=== PATIENT | female | born 1940 | race Asian ===

== ENCOUNTER 2022-07-09 15:20 | Inpatient (IN) | payer OTHER, MEDICARE ==
[~2022-07-09] VITALS: Ht 154.9 cm; Wt 57.2 kg
[2022-07-09 15:23] VITALS: BP 124/76
--- NOTE | 2022-07-09 15:26 | NUR ---
PT BIBA TO BED 3
--- NOTE | 2022-07-09 15:28 | NUR ---
HX DM , HTN , ALZHEIMERS ,FROM HOME TRIPPED OVER A RUG UNWITTNESSED, GCS 14, NO DEFORMITY, RIGHT HIP BRUISE
[2022-07-09 16:16] LABS: BASOPHILS # (AUTO) 0.1 K/uL (0.00-0.22); BASOPHILS % (AUTO) 0.6 % (0.0-2.0); EOSINOPHILS # (AUTO) 0.1 K/uL (0-0.4); EOSINOPHILS % (AUTO) 0.6 % (0.0-4.0); HEMATOCRIT 30.4 % (36-48); HEMOGLOBIN 10.3 g/dL (12.0-16.0); LYMPHOCYTES # (AUTO) 0.8 K/uL (2.5-16.5); MEAN CORPUSCULAR HEMOGLOBIN 29 pg (27-31); MEAN CORPUSCULAR HGB CONC 34 g/dL (33-37); MEAN CORPUSCULAR VOLUME 84.7 fL (80-94); MONOCYTES # (AUTO) 0.7 K/uL (0.8-1.0); MONOCYTES % (AUTO) 7.2 % (1.7-9.3); NEUTROPHILS # (AUTO) 8.7 K/uL (1.8-7.7); NEUTROPHILS % (AUTO) 83.5 % (42.2-75.2); PLATELET COUNT (AUTO) 233 K/uL (140-450); RED BLOOD CELL COUNT(AUTO) 3.59 MIL/uL (4.20-5.40); RED CELL DISTRIBUTION WIDTH 13.1 % (11.6-13.7); WHITE BLOOD COUNT (AUTO) 10.4 K/uL (4.8-10.8)
[2022-07-09 16:19] LABS: LYMPHOCYTES % (AUTO) 8.1 % (20.5-51.1)
[2022-07-09 16:34] LABS: ALBUMIN 3.5 g/dL (3.4-5.0); ANION GAP 12.1 (8-16); ASPARTATE AMINOTRANSFERASE 18 U/L (15-37); CHLORIDE 100 mmol/L (98-107); GLUCOSE 260 mg/dL (74-106); POTASSIUM 4.1 mmol/L (3.5-5.1); SODIUM SERUM 136 mmol/L (136-145); TOTAL BILIRUBIN 1.5 mg/dL (0.0-1.0); UREA NITROGEN, BLOOD 26 mg/dL (7-18)
[2022-07-09 16:43] LABS: PROTHROMBIN TIME 9.2 secs (10.8-13.4)
[2022-07-09] MEDS ORDERED: MORPHINE SULFATE 4 MG/ML SYR IVP ONE (16:50)
[2022-07-09] MEDS ORDERED: ONDANSETRON 4 MG/2 ML VIAL IVP PRN (18:10)
[2022-07-09] MEDS ORDERED: MORPHINE SULFATE 2 MG/ML SYR IVP PRN (18:10)
[2022-07-09] MEDS ORDERED: ACETAMINOPHEN 325 MG TAB PO PRN (18:10)
[2022-07-09] MEDS ORDERED: DEXTROSE 50% 50 ML SYR IVP PRN (18:15)
[2022-07-09] MEDS: DEXT 5% /NACL 0.9% 1,000 ML IV SCH ×2 (18:25→23:31)
--- NOTE | 2022-07-09 20:01 | NUR ---
81yo F here for R hip fracture. Sleeping at this time. No complaints of pain. VS stable. Daughter at bedside. Pt has assigned bed, will admit soon.
[2022-07-09] MEDS: BLOOD GLUCOSE MONITORING 1 DEV DEV FS SCH (21:09)
[2022-07-09] MEDS: INSULIN LISPRO SLIDING SCALE 100 UNITS/ML VIAL SUBQ PRN (21:21)
--- NOTE | 2022-07-09 21:30 | NUR ---
Blooc sugar 398. 10 units Humalog SC given per sliding scale
--- NOTE | 2022-07-09 21:39 | NUR ---
Admitted to room 106B. Report given to CAMDEN Lou
[2022-07-10] VITALS: BP 154/76
[2022-07-10 04:00] VITALS: BP 156/71
[2022-07-10 06:56] LABS: BASOPHILS % (AUTO) 0.2 % (0.0-2.0); EOSINOPHILS # (AUTO) 0.1 K/uL (0-0.4); EOSINOPHILS % (AUTO) 1.3 % (0.0-4.0); HEMATOCRIT 29.5 % (36-48); HEMOGLOBIN 9.6 g/dL (12.0-16.0); LYMPHOCYTES # (AUTO) 0.9 K/uL (2.5-16.5); MEAN CORPUSCULAR HEMOGLOBIN 28 pg (27-31); MEAN CORPUSCULAR HGB CONC 33 g/dL (33-37); MEAN CORPUSCULAR VOLUME 84.8 fL (80-94); MONOCYTES # (AUTO) 0.7 K/uL (0.8-1.0); MONOCYTES % (AUTO) 10.8 % (1.7-9.3); NEUTROPHILS % (AUTO) 74.7 % (42.2-75.2); PLATELET COUNT (AUTO) 212 K/uL (140-450); RED BLOOD CELL COUNT(AUTO) 3.48 MIL/uL (4.20-5.40); RED CELL DISTRIBUTION WIDTH 13.5 % (11.6-13.7); WHITE BLOOD COUNT (AUTO) 6.7 K/uL (4.8-10.8)
[2022-07-10 07:21] LABS: ANION GAP 9.4 (8-16); CARBON DIOXIDE 27.7 mmol/L (21-32); CHLORIDE 107 mmol/L (98-107); CREATININE 0.8 mg/dL (0.6-1.3); GLUCOSE 189 mg/dL (74-106); POTASSIUM 4.1 mmol/L (3.5-5.1); SODIUM SERUM 140 mmol/L (136-145); UREA NITROGEN, BLOOD 17 mg/dL (7-18)
[2022-07-10] MEDS: BLOOD GLUCOSE MONITORING 1 DEV DEV FS SCH ×4 (07:30→21:00)
--- NOTE | 2022-07-10 07:30 | NUR ---
REPORT RECEIVED FROM NIGHTSHIFT NURSERADHA. PT CONFUSED. DAUGHTER AT BEDSIDE. RR EVEN & UNLABORED. ON RA. NPO AFTER MIDNIGHT. D5NS @ 75 ON RFA #20. NEEDS ALL MET AT THIS TIME. ALL SAFETY MEASURES IN PLACE.
[2022-07-10 08:00] VITALS: BP 127/95
--- NOTE | 2022-07-10 10:30 | NUR ---
SURGEON JYOTHI DISCUSSED PLANNED ORIF WITH PT'S DAUGHTER AT BEDSIDE WITH CAMDEN HIDALGO. SURGEON JYOTHI ORDER FOR NORRIS INSERTION AND ECHOCARDIOGRAM.
--- NOTE | 2022-07-10 10:38 | NUR ---
PATIENT HAS BEEN SCREENED AND CATEGORIZED MODERATE NUTRITION RISK. PATIENT WILL BE SEEN WITHIN 3-5 DAYS OF ADMISSION. 07/09/22-07/14/[address]
--- NOTE | 2022-07-10 11:00 | NUR ---
16 [place] NORRIS CATH INSERTED VIA STERILE TECHNIQUE WITH CLEAR YELLOW URINE TO DRAINAGE BAG. STAT LOCK APPLIED ON LLE. PT TOLERATED WELL. ALL NEEDS MET. ALL SAFETY MEASURES IN PLACE.
--- NOTE | 2022-07-10 12:23 | NUR ---
CONTACTED DR. DALTON FOR DIET ORDERS. DR. ROE PLANS FOR SURGERY (07/12/22). AWAITING REPLY.
--- NOTE | 2022-07-10 12:30 | NUR ---
ORDER FOR DR. ONEILL TO READ ECHOCARDIOGRAM RESULTS ONCE IT IS IN FOR SURGICAL CLEARANCE. DR. ONEILL NOTIFIED.
--- NOTE | 2022-07-10 12:32 | NUR ---
DR. DALTON ORDER FOR [facility] 60 GM MECHANICAL SOFT DIET.
--- NOTE | 2022-07-10 15:23 | NUR ---
ECHO PERFORMING AT BEDSIDE. PT TOLERATING WELL. IN NO ACUTE DISTRESS. ON RA.
[2022-07-10] MEDS: INSULIN LISPRO SLIDING SCALE 100 UNITS/ML VIAL SUBQ PRN (16:17)
--- NOTE | 2022-07-10 19:20 | NUR ---
REPORT GIVEN TO NIGHTSMAFT NURSEALYCE FOR CONTINUITY OF CARE.
[2022-07-10 20:00] VITALS: BP 144/85
[2022-07-10] MEDS: DEXT 5% /NACL 0.9% 1,000 ML IV SCH (20:50)
[2022-07-11] MEDS ORDERED: HALOPERIDOL IM 5 MG/ML VIAL IM SCH (00:25)
[2022-07-11] MEDS: BLOOD GLUCOSE MONITORING 1 DEV DEV FS SCH ×4 (07:30→21:50)
[2022-07-11] MEDS: DEXT 5% /NACL 0.9% 1,000 ML IV SCH ×2 (07:59→23:30)
[2022-07-11 08:00] VITALS: BP 158/87
[2022-07-11] MEDS: INSULIN LISPRO SLIDING SCALE 100 UNITS/ML VIAL SUBQ PRN ×3 (12:20→21:50)
[2022-07-11] MEDS ORDERED: bisacodyL 10 MG SUPP RC PRN (12:35)
--- NOTE | 2022-07-11 15:17 | NUR ---
PT. WITH LOW MITCHELL SCALE AT MODERATE TO HIGH RISK, CONTINUE TO FOLLOW PRESSURE INJURY PREVENTION INTERVENTIONS. -POSITIONING: TURN AND REPOSITION PATIENT Q 2H OR SOONER USE PILLOWS TO KEEP BONY PROMINENCES FROM DIRECT CONTACT WITH SURFACES USE REPOSITIONING WEDGES TO PROVIDE 30-DEGREE ANGLE FOR SIDE LYING POSITIONS OFFLOADING OR FOAM DRESSING TO ALL TUBING TO PREVENT MEDICAL DEVICES RELATED PRESSURE INJURY -RE-EVALUATING AND MANAGING INCONTINENCE MONITOR SKIN CONDITION DURING POSITION CHANGE DO NOT MASSAGE REDNESS, BONY PROMINENCES FREQUENT MARIANO-CARE AND PROVIDE BARRIER CREAMS PRN IF SOILING MOISTURE CONTROL BY OFFER BED AREVALO/URINAL /ABSORBENT PAD TO WICK AND HOLD MOISTURE KEEP SKIN DRY AND PROTECT FROM FRICTION -MANAGE FRICTION/SHEAR/MOBILITY KEEP HOB AT THE LOWEST LEVEL OF ELEVATION NO MORE THAN 30 DEGREE UNLESS OTHERWISE CONTRAINDICATED USE LIFT SHEET OR TRANSFER DEVICE TO MOVE PATIENT AND PREVENT LATERAL SHEER. PROTECT HEELS, ELBOWS BONY PROMINENCES WITH SKIN BERRIES OR FOAM DRESSING IF EXPOSED TO FRICTION OFFLOAD BILATERAL HEELS BY PLACING PILLOWS UNDER CALVES AT ALL TIMES, UNLESS OTHERWISE CONTRAINDICATED -PRESSURE REDISTRIBUTION SURFACE THERAPY ZURI ISOFLEX MATTRESS -NUTRITION: PLEASE FOLLOW RD RECOMMENDATIONS AND OFFER NUTRITION SUPPLEMENTS IF ORDERED. PLEASE CONTACT WOUND CARE NURSE FOR ANY QUESTION AND CHANGE OF WOUND CONDITION.
[2022-07-11 16:00] VITALS: BP 152/68
--- NOTE | 2022-07-11 17:59 | NUR ---
pt alert and oriented to self, family at bedside all day. pt pleasant and cooperative. no c/o pain at rest. daughter requested suppository for not having a bm in a week even though the chart states patient had a bm yesterday. suppository given @1730. insulin coverage given as needed for elevated glucose levels. fall precautions in place.
[2022-07-11 20:01] VITALS: BP 150/67
[2022-07-11] MEDS ORDERED: LORazepam 1 MG TAB PO PRN (22:25)
[2022-07-12] VITALS (9 sets, daily range): BP systolic 101–145; BP diastolic 43–66
[2022-07-12 05:46] LABS: BASOPHILS # (AUTO) 0.1 K/uL (0.00-0.22); BASOPHILS % (AUTO) 0.5 % (0.0-2.0); EOSINOPHILS % (AUTO) 0.4 % (0.0-4.0); HEMATOCRIT 28.6 % (36-48); HEMOGLOBIN 9.6 g/dL (12.0-16.0); LYMPHOCYTES # (AUTO) 1.1 K/uL (2.5-16.5); LYMPHOCYTES % (AUTO) 10.3 % (20.5-51.1); MEAN CORPUSCULAR HEMOGLOBIN 28 pg (27-31); MEAN CORPUSCULAR HGB CONC 34 g/dL (33-37); MEAN CORPUSCULAR VOLUME 82.6 fL (80-94); MONOCYTES # (AUTO) 0.8 K/uL (0.8-1.0); MONOCYTES % (AUTO) 7.3 % (1.7-9.3); NEUTROPHILS # (AUTO) 8.8 K/uL (1.8-7.7); NEUTROPHILS % (AUTO) 81.5 % (42.2-75.2); PLATELET COUNT (AUTO) 260 K/uL (140-450); RED BLOOD CELL COUNT(AUTO) 3.46 MIL/uL (4.20-5.40); RED CELL DISTRIBUTION WIDTH 13.4 % (11.6-13.7); WHITE BLOOD COUNT (AUTO) 10.8 K/uL (4.8-10.8)
[2022-07-12 06:21] LABS: ANION GAP 11.3 (8-16); CARBON DIOXIDE 26.6 mmol/L (21-32); CHLORIDE 100 mmol/L (98-107); CREATININE 0.9 mg/dL (0.6-1.3); GLUCOSE 222 mg/dL (74-106); POTASSIUM 3.9 mmol/L (3.5-5.1); SODIUM SERUM 134 mmol/L (136-145); UREA NITROGEN, BLOOD 20 mg/dL (7-18)
[2022-07-12] MEDS: BLOOD GLUCOSE MONITORING 1 DEV DEV FS SCH ×4 (06:40→21:25)
[2022-07-12] MEDS ORDERED: KETOROLAC 30 MG/ML VIAL ONE ×2 (07:00→09:05)
[2022-07-12] MEDS ORDERED: PROPOFOL 200 MG/20 ML VIAL IV ONE ×2 (07:00→09:05)
[2022-07-12] MEDS ORDERED: GLYCOPYRROLATE 1 MG TAB ONE (07:00)
[2022-07-12] MEDS ORDERED: ONDANSETRON 4 MG/2 ML VIAL ONE ×2 (07:00→09:05)
[2022-07-12] MEDS ORDERED: fentaNYL citrate 0.05 MG/ML - 50mL vial IV ONE (07:00)
[2022-07-12] MEDS ORDERED: ROCURONIUM 50 MG/5 ML VIAL IV ONE ×2 (07:00→09:05)
[2022-07-12] MEDS ORDERED: ceFAZolin 1,000 MG VIAL ONE (07:00)
[2022-07-12] MEDS ORDERED: SEVOFLURANE 250 ML BTL INH ONE (07:00)
[2022-07-12] MEDS ORDERED: NEOSTIGMINE 1:1000 10 MG/10 ML VIAL ONE ×2 (07:00→10:07)
[2022-07-12] MEDS ORDERED: SUGAMMADEX SODIUM 200 MG/2 ML VIAL IV ONE (07:00)
--- NOTE | 2022-07-12 07:14 | NUR ---
PT. IN OR FOR PROCEDURE.
[2022-07-12] MEDS ORDERED: BUPIVACAINE-MPF/EPI 0.25% 30 ML VIAL INJ ONE (07:20)
[2022-07-12] MEDS ORDERED: fentaNYL citrate 0.05 MG/ML VIAL ONE (08:09)
[2022-07-12] MEDS ORDERED: SUCCINYLCHOLINE CHLORIDE 200 MG/10 ML VIAL IVP ONE (09:05)
[2022-07-12] MEDS ORDERED: GLYCOPYRROLATE 0.2 MG/ML VIAL ONE ×4 (10:07)
[2022-07-12] MEDS ORDERED: ATROPINE 0.4 MG/ML VIAL ONE (10:07)
[2022-07-12] MEDS ORDERED: HYDROmorphone 1 MG/ML AMP IVP PRN (10:20)
[2022-07-12] MEDS ORDERED: BLOOD GLUCOSE MONITORING 1 DEV DEV FS SCH (10:20)
[2022-07-12] MEDS ORDERED: diphenhydrAMINE 50 MG/ML VIAL IVP PRN (10:20)
[2022-07-12] MEDS ORDERED: NACL 0.9% 1,000 ML IV SCH (10:20)
[2022-07-12] MEDS ORDERED: METOCLOPRAMIDE 10 MG/2 ML INJ VIAL IVP PRN (10:23)
[2022-07-12] MEDS ORDERED: LABETALOL 20 MG/4 ML VIAL IVP PRN (10:23)
[2022-07-12] MEDS ORDERED: hydrALAZINE 20 MG/ML VIAL IVP PRN (10:23)
[2022-07-12] MEDS: INSULIN LISPRO SLIDING SCALE 100 UNITS/ML VIAL SUBQ PRN ×2 (10:50→16:36)
--- NOTE | 2022-07-12 11:11 | NUR ---
BACK FROM OR VIA GURNEY ACCOMPANIED BY FAMILY MEMBERS. PT. SLEEPING BUT EASILY AROUSABLE. KEEP COMFORTABLE ON BED. CALL LIGHT WITHIN REACH.
[2022-07-12] MEDS: DEXT 5% /NACL 0.9% 1,000 ML IV SCH (12:50)
--- NOTE | 2022-07-12 16:41 | NUR ---
DC PLANNING LATE ENTRY PT SEEN ON 07/11 ASSESSMENT COMPLETE PLEASE REFER TO ASSESSMENT FOR DETAILS DC PLANNING TENTATIVE ON PTS PHYSICAL THERAPY EVAL. FAMILY NOTIFIED BY PHYSICAL THERAPIST RECOMMENDATION FOR SNF HOWEVER, FAMILY REPORTS THEY WILL THINK ABOUT AND NOTIFY PHYSICIAN ON 07/13/22 Addendum: 07/12/22 at 1651 by Tamia CHATTERJEE Amended: Links added. Addendum: 07/13/22 at 1647 by Tamia Puentes SS OUTREACHED TO PTS DAUGHTER BARBIE VALENTIN [phone] TO CONFIRM HOME ADDRESS. BARBIE VALENTIN REPORTS HOME ADDRESS [id number] [facility] [id number] [facility] TRANSPORT REQUEST FORM FAXED TO [phone] [facility] TRANSPORT [phone] TO OUTREACH TO NURSING STATION WITH UPDATED P/UP TIME. ENDORSED TO CHARGE NURSE. [facility] TRANSPORT NUMBER ; [phone] [facility]- [phone]
--- NOTE | 2022-07-12 17:35 | NUR ---
SLEEPING COMFORTABLY. NO DISCOMFORT NOTED. PT. DAUGHTER ON BEDSIDE.
--- NOTE | 2022-07-12 19:15 | NUR ---
REPORT GIVEN TO SOFIA GARCIA IN STABLE CONDITION.
--- NOTE | 2022-07-12 19:16 | NUR ---
RECEIVED ENDORSEMENT FROM ANTHONY GAYTAN, PATIENT WAS STABLE DURING SHIFT REPORT. PATIENT IS IN BED ASLEEP. NURSING OBSERVED CHEST RISING AND FALLING WITHOUT INCIDENT. PATIENT WAS UNRESPONSIVE OF VERBALLY BUT WILL MOVE TACTILE STIMULI. FAMILY (CHRIS, DAUGHTER) AT BED SIDE FOR VISITING. PATIENT HAS BEEN REPORTED DEMENTIA AND NEEDS ASSISTANCE, FAMILY HAS BEEN PERMITTED BY ADMINISTRATION TO STAY PASSED VISITING HOURS. NO NOTED S/S OF PAIN/DISCOMFORT. NO NOTED S/S OF RESPIRATORY DISTRESS. KEPT CLEAN AND DRY AT THIS TIME. SIDE RAILS UP. HEAD OF BED ELEVATED. CALL LIGHT WITHIN REACH FOR ASSISTANCE. NURSING WILL FREQUENT THE ROOM FOR ANTICIPATED ASSISTANCE. [email or web address]
--- NOTE | 2022-07-12 20:00 | NUR ---
Patient's Plan of Care was discussed and reviewed with FEED MANAGER: SOFIA RODRIGUEZ
--- NOTE | 2022-07-12 21:26 | NUR ---
CHARGE NURSE WAS NOTIFIED OF PATIENT BLOOD PRESSURE AT 203/90 THE RETAKEN 2 MINUTES AND 208/96. CROZE CUTTER HELPER MD WAS NOTIFIED AND NEW ORDERS TO STABLIZE BLOOD PRESSURE AND PAIN. STORE OPERATIONS ASSOCIATE WILL NOTIFIED THE GEOSCIENCES PROFESSOR FOR ORDERS TO DIALYSIS BECAUSE TODAY SHE WAS DUE. [email or web address] Addendum: 07/12/22 at 2300 by Imani Walker LVN ERROR WRONG PATIENT..........................................[email or web address]
--- NOTE | 2022-07-12 22:58 | NUR ---
ERROR WRONG PATIENT CHARGING.................................................[email or web address]
--- NOTE | 2022-07-13 01:02 | NUR ---
PATIENT IN ROOM ASLEEP AT THIS TIME. NO NOTED S/S OF PAIN/DISTRESS. NO RESPIRATORY DISTRESS. [email or web address]
[2022-07-13] MEDS: DEXT 5% /NACL 0.9% 1,000 ML IV SCH ×2 (02:10→10:10)
[2022-07-13 04:00] VITALS: BP 129/54
--- NOTE | 2022-07-13 04:36 | NUR ---
PATIENT IN ROOM AWAKEP AT THIS TIME. WAS NOT ABLE TO SLEEP ANYMORE FOR THE REST OR THE EVENING. NO NOTED S/S OF PAIN/DISTRESS. NO RESPIRATORY DISTRESS. [email or web address]
[2022-07-13] MEDS: BLOOD GLUCOSE MONITORING 1 DEV DEV FS SCH ×3 (06:38→16:33)
[2022-07-13] MEDS: INSULIN LISPRO SLIDING SCALE 100 UNITS/ML VIAL SUBQ PRN ×3 (06:38→16:36)
--- NOTE | 2022-07-13 07:08 | NUR ---
ENDORSED PATIENT CARE TO NIKOLAI GAYTAN, PATIENT WAS STABLE DURING CHANGE OF SHIFT. [email or web address]
--- NOTE | 2022-07-13 07:10 | NUR ---
ASSUMED CONTINUITY OF CARE. INITIAL ASSESSMENT DONE. PT. ON BEDSIDE. PT. IV ON RIGHT HAND GAUGE #20 WAS OUT. NO ACTIVE BLEEDING NOTED. KEEP PT. COMFORTABLE ON BED. FALL PRECAUTION APPLIED. CALL LIGHT WITHIN REACH.
[2022-07-13 08:00] VITALS: BP 140/60
--- NOTE | 2022-07-13 10:05 | NUR ---
INSERTED NEW IV ACCESS ON RIGHT WRIST GAUGE #22 WITH ASSISTANCE FROM GERARD CARTER. TOLERATED WELL. PT. DAUGHTER ON BEDSIDE.
[2022-07-13] MEDS ORDERED: NACL 0.9% 1,000 ML IV SCH (15:15)
[2022-07-13 16:00] VITALS: BP 135/60
--- NOTE | 2022-07-13 16:21 | NUR ---
07/13/22 RD INITIAL ASSESSMENT COMPLETED PLEASE REFER TO NUTRITION ASSESSMENT UNDER CARE ACTIVITY FOR ESTIMATED NUTRITIONAL NEEDS. 1. RECOMMEND ADDING CCHO 60 GM TO FULL LIQUID DIET TOLERATED - RECOMMEND GLUCERNA 1/DAY (PROVIDES 220 KCAL AND 20 GM PROTEIN DAILY) 2. WHEN/IF DIET READY TO BE ADVANCED, RECOMMEND CCHO [address] GM DI[address] T[address]. RD TO FOLLOW-UP 3-5 DAYS, MODERATE RISK REVIEWED BY ANUEL MORSE RD
--- NOTE | 2022-07-13 17:54 | NUR ---
DC PLANNING: CARROL AND DR DAVIS SPOKE WITH PT'S DAUGHTER DISCUSSED THE NEED FOR REHAB BUT DAUGHTER INSISTED TO GO HOME. SHE STATED PATIENT WANTED TO GO HOME AND WANTED TO KEEP HER WISHES SHE ALSO STATED SHE IS THE CAREGIVER AND GETS IHSS FOR 100 HRS. ARRANGED HOME HEALTH FOR PT WITH [facility]. ARRANGED TRANSPORT WITH [facility] UPTIME 6PM NOTIFIED NIKOLAI GAYTAN. CM TO FOLLOW Addendum: 07/14/22 at 1033 by JASPREET LUTHER CM FAY LOERA: PT HAD ORDER FOR DISCHARGE HOME WITH FOR PHYSICAL THERAPY. FAXED TO [facility] AND [facility]. SPOKE WITH CINDY PT WAS ACCEPTED BY [facility] FIRST . PT WILL HAVE AN EVAL DONE BY ANUJ TODAY 07/14/2022. AND START PHYSICAL THERAPY TOMORROW 07/15/2022
== END 2022-07-13 19:50 | disposition home health service (06) | DRG 308 ==
LOC: MED 15:20 → MMU 18:11 → MTU 21:04
PROVIDERS: ADMIT Hospitalist; ATTEND Hospitalist
PROC: 0QS606Z Reposition Right Upper Femur with Intramedullary Internal Fixation Device, Open Approach (ICD-10-PCS; principal; 2022-07-12 07:30)
DX: S72.141A Displaced intertrochanteric fracture of right femur, initial encounter for closed fracture (principal); R65.10 Systemic inflammatory response syndrome (SIRS) of non-infectious origin without acute organ dysfunction; F03.90 Unspecified dementia, unspecified severity, without behavioral disturbance, psychotic disturbance, mood disturbance, and anxiety; E11.9 Type 2 diabetes mellitus without complications; I10 Essential (primary) hypertension; Z20.822 Contact with and (suspected) exposure to COVID-19; W18.30XA Fall on same level, unspecified, initial encounter; Z91.81 History of falling; Y93.9 Activity, unspecified; Y92.009 Unspecified place in unspecified non-institutional (private) residence as the place of occurrence of the external cause; Y99.9 Unspecified external cause status
CPT/HCPCS: 36415; 71045; 72170; 73501; 80048; 80053; 82948; 84484; 85025; 85610; 85730; 86886; 86900; 86901; 87081; 93005; 96372; 96374; 97112; 97163-GP; 97530; 99285; C1713; J0330; J0461; J0690; J1630; J1885; J2270; J2405; J2704; J2710; J3010; J3490; J7120; Q0092

== ENCOUNTER 2022-09-15 11:14 | Emergency (ER) | payer MEDICARE, OTHER ==
[~2022-09-15] VITALS: Ht 152.4 cm; Wt 76.2 kg
[2022-09-15 11:23] VITALS: BP 143/93
[2022-09-15] MEDS ORDERED: DEXTROSE 50% 50 ML SYR IVP ONE ×2 (11:36→12:30)
[2022-09-15] MEDS ORDERED: NACL 0.9% 1,000 ML IV ONE (12:10)
[2022-09-15 12:24] LABS: BASOPHILS % (AUTO) 0.5 % (0.0-2.0); EOSINOPHILS % (AUTO) 0.5 % (0.0-4.0); HEMATOCRIT 35.6 % (36-48); HEMOGLOBIN 11.6 g/dL (12.0-16.0); LYMPHOCYTES # (AUTO) 0.8 K/uL (2.5-16.5); LYMPHOCYTES % (AUTO) 16.5 % (20.5-51.1); MEAN CORPUSCULAR HEMOGLOBIN 26 pg (27-31); MEAN CORPUSCULAR HGB CONC 33 g/dL (33-37); MEAN CORPUSCULAR VOLUME 80.7 fL (80-94); MONOCYTES # (AUTO) 0.4 K/uL (0.8-1.0); MONOCYTES % (AUTO) 7.3 % (1.7-9.3); NEUTROPHILS # (AUTO) 3.7 K/uL (1.8-7.7); NEUTROPHILS % (AUTO) 75.2 % (42.2-75.2); PLATELET COUNT (AUTO) 171 K/uL (140-450); RED BLOOD CELL COUNT(AUTO) 4.41 MIL/uL (4.20-5.40); RED CELL DISTRIBUTION WIDTH 15.4 % (11.6-13.7); WHITE BLOOD COUNT (AUTO) 4.9 K/uL (4.8-10.8)
[2022-09-15 12:42] LABS: ALBUMIN 3.2 g/dL (3.4-5.0); ANION GAP 10.6 (8-16); ASPARTATE AMINOTRANSFERASE 44 U/L (15-37); CARBON DIOXIDE 26.6 mmol/L (21-32); CHLORIDE 103 mmol/L (98-107); CREATININE 0.9 mg/dL (0.6-1.3); GLUCOSE 299 mg/dL (74-106); POTASSIUM 4.2 mmol/L (3.5-5.1); SODIUM SERUM 136 mmol/L (136-145); TOTAL BILIRUBIN 0.6 mg/dL (0.0-1.0); UREA NITROGEN, BLOOD 11 mg/dL (7-18)
--- NOTE | 2022-09-15 13:15 | NUR ---
AWAKE ALERT X 4, CONVERSANT AND FOLLOW DIRECTIONS. ATE PER [employer] [facility]
[2022-09-15 14:41] VITALS: BP 115/70
--- NOTE | 2022-09-15 14:42 | NUR ---
Patient discharged with v/s stable. Written and verbal after care instructions given and explained. Patient verbalized understanding. Wheel Chair Assisted with by caregiver. All questions addressed prior to discharge. Advised to follow up with PMD.
== END 2022-09-15 14:41 | disposition home or self-care (01) ==
LOC: MED 11:14
DX: E11.649 Type 2 diabetes mellitus with hypoglycemia without coma (principal); I10 Essential (primary) hypertension; E78.5 Hyperlipidemia, unspecified; Z98.890 Other specified postprocedural states
CPT/HCPCS: 36415; 71045; 80053; 85025; 93005; 96361; 96374; 99291; J7030; Q0092

== ENCOUNTER 2023-09-17 10:07 | Observation (INO) | payer MEDICARE, OTHER ==
[~2023-09-17] VITALS: Ht 152.4 cm; Wt 56.7 kg
[2023-09-17 10:32] VITALS: BP 149/69; PULSE 75; RESP 15; TEMP 97.7; O2SAT 97
[2023-09-17 11:34] LABS: BASOPHILS % (AUTO) 0.2 % (0.0-2.0); EOSINOPHILS % (AUTO) 0.2 % (0.0-4.0); HEMATOCRIT 37.6 % (36-48); HEMOGLOBIN 12.6 g/dL (12.0-16.0); LYMPHOCYTES # (AUTO) 0.5 K/uL (2.5-16.5); LYMPHOCYTES % (AUTO) 7.3 % (20.5-51.1); MEAN CORPUSCULAR HEMOGLOBIN 28 pg (27-31); MEAN CORPUSCULAR HGB CONC 33 g/dL (33-37); MEAN CORPUSCULAR VOLUME 83.3 fL (80-94); MONOCYTES # (AUTO) 0.4 K/uL (0.8-1.0); MONOCYTES % (AUTO) 5.1 % (1.7-9.3); NEUTROPHILS # (AUTO) 6.5 K/uL (1.8-7.7); NEUTROPHILS % (AUTO) 87.2 % (42.2-75.2); PLATELET COUNT (AUTO) 151 K/uL (140-450); RED BLOOD CELL COUNT(AUTO) 4.52 MIL/uL (4.20-5.40); RED CELL DISTRIBUTION WIDTH 13.9 % (11.6-13.7); WHITE BLOOD COUNT (AUTO) 7.4 K/uL (4.8-10.8)
[2023-09-17 11:55] LABS: ALANINE AMINOTRANSFERASE 22 U/L (12-78); ALBUMIN 3.4 g/dL (3.4-5.0); ALKALINE PHOSPHATASE 67 U/L (50-136); ANION GAP 11.5 (8-16); ASPARTATE AMINOTRANSFERASE 20 U/L (15-37); CALCIUM 8.3 mg/dL (8.5-10.1); CHLORIDE 103 mmol/L (98-107); CREATININE 0.9 mg/dL (0.6-1.3); GLUCOSE 131 mg/dL (74-106); LIPASE 43 U/L (16-77); POTASSIUM 3.5 mmol/L (3.5-5.1); SODIUM SERUM 138 mmol/L (136-145); TOTAL BILIRUBIN 1.2 mg/dL (0.0-1.0); UREA NITROGEN, BLOOD 17 mg/dL (7-18)
[2023-09-17] MEDS: DEXT 5% / NACL 0.9% 500 ML IV ONE (13:16)
[2023-09-17] MEDS: QUEtiapine FUMARATE 25 MG TAB PO STA (13:46)
[2023-09-17] MEDS ORDERED: ACETAMINOPHEN 325 MG TAB PO PRN (14:10)
[2023-09-17] MEDS ORDERED: MORPHINE SULFATE 2 MG/ML SYR IVP PRN (14:10)
[2023-09-17] MEDS ORDERED: ONDANSETRON 4 MG/2 ML VIAL IVP PRN (14:10)
[2023-09-17] MEDS ORDERED: INSU100V4 SQ (14:14)
[2023-09-17] MEDS ORDERED: SEMA0.258 SQ (14:14)
[2023-09-17] MEDS ORDERED: INSULIN LISPRO SLIDING SCALE 100 UNITS/ML VIAL SUBQ PRN (14:15)
[2023-09-17] MEDS ORDERED: DEXTROSE 50% 50 ML SYR IVP PRN (14:15)
[2023-09-17] MEDS ORDERED: LORazepam 2 MG/ML VIAL IVP PRN (16:10)
[2023-09-17] MEDS ORDERED: LORazepam 2 MG/ML VIAL IVP SCH (16:35)
[2023-09-17] MEDS: BLOOD GLUCOSE MONITORING 1 DEV DEV FS SCH (16:42)
[2023-09-17 17:21] VITALS: BP 162/83; PULSE 84; RESP 18; TEMP 97; O2SAT 97
[2023-09-17 17:27] VITALS: PULSE 84; RESP 18
[2023-09-17 18:01] VITALS: PULSE 94
[2023-09-17 20:51] VITALS: BP 188/102; PULSE 105; RESP 18; TEMP 97.3; O2SAT 97
[2023-09-17] MEDS: QUEtiapine FUMARATE 25 MG TAB PO SCH (21:08)
== END 2023-09-17 21:35 | disposition left against medical advice (07) ==
LOC: MED 10:07 → MTU 14:11
PROVIDERS: ADMIT Hospitalist; ATTEND Hospitalist
DX: E11.65 Type 2 diabetes mellitus with hyperglycemia (principal); F03.90 Unspecified dementia, unspecified severity, without behavioral disturbance, psychotic disturbance, mood disturbance, and anxiety; I10 Essential (primary) hypertension; Z79.4 Long term (current) use of insulin
CPT/HCPCS: 36415; 70450; 80053; 82948; 83690; 84484; 85025; 87081; 93005; 99291; G0378